=== PATIENT | male | born 1985 | race Caucasian/White ===

== ENCOUNTER 2022-03-17 18:50 | Emergency (ER) | payer OTHER, BC, SELFPAY ==
[2022-03-17] VITALS (10 sets, daily range): BP systolic 130–131; BP diastolic 77–85; PULSE 60–86; RESP 11–17; TEMP 36.3; O2SAT 95–99
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
[2022-03-17 19:49] LABS: Basophils Percent Auto 0.3 % (0.2-1.2); Eosinophils Percent Auto 0.2 % (0-4.4); Hematocrit 42.9 % (42.0-52.0); Hemoglobin 14.9 g/dL (14.0-18.0); Immature Granulocyte Absolute 0.11 K/mm3 (0.00-0.031); Immature Granulocyte Percent A 0.8 % (0-0.5); Lymphocytes Absolute Auto 1.35 K/mm3 (0.9-3.2); Lymphocytes Percent Auto 9.5 % (18.3-44.2); Mean Corpuscular HGB Conc 34.7 g/dl (32-36); Mean Corpuscular Hemoglobin 30.3 pg (26-34); Mean Corpuscular Volume 87.4 fl (80-100); Mean Platelet Volume 9.9 fl (7.4-10.4); Monocytes Absolute Auto 0.5 K/mm3 (0.1-0.6); Monocytes Percent Auto 3.6 % (2.6-8.5); Neutrophils Absolute Auto 12.2 K/mm3 (1.3-6.7); Neutrophils Percent Auto 85.6 % (45.5-73.1); Platelet Count Result 257 k/mm3 (150-375); Red Blood Count 4.91 M/mm3 (4.6-6.20); Red Cell Distribution Width 11.9 % (11.5-14.5); White Blood Count 14.2 K/mm3 (4.5-10.0)
[2022-03-17 20:02] LABS: Alanine Aminotransferase 30 U/L (6-50); Albumin Level 4.8 g/dL (3.5-5.1); Alkaline Phosphatase 57 U/L (38-126); Anion Gap 14 mmol/L (8-16); Aspartate Amino Transferase 38 U/L (17-59); Bilirubin,Total 0.5 mg/dL (0.2-1.3); Blood Urea Nitrogen 10 mg/dL (9-20); Calcium 8.3 mg/dL (8.4-10.2); Carbon Dioxide 19 mmol/L (22-30); Chloride 101 mmol/L (98-107); Estimated CRCL calculation 115 ml/min; Estimated Glomerular Filt Rate > 60; Glucose 104 mg/dL (65-110); Potassium 3.6 mmol/L (3.4-5.0); Sodium 134 mmol/L (137-145)
[2022-03-17 20:14] LABS: Ethanol 272 mg/dL (<10)
== END 2022-03-17 22:39 | disposition home or self-care (01) ==
PROVIDERS: Emergency Provider Emergency Medicine
DX: Z04.1 Encounter for examination and observation following transport accident (principal); F10.129 Alcohol abuse with intoxication, unspecified; Y90.7 Blood alcohol level of 200-239 mg/100 ml; V47.5XXA Car driver injured in collision with fixed or stationary object in traffic accident, initial encounter; N20.0 Calculus of kidney
CPT/HCPCS: 36415; 70450; 71260; 72125; 74177; 80053; 80307; 85025; 99284; Q9967

== ENCOUNTER 2025-02-06 00:11 | Emergency (ER) | payer OTHER, SELFPAY ==
--- NOTE | ~2025-02-06 | CT_ITS ---
EXAM/PROCEDURE: CT abdomen pelvis wo con HISTORY: flank pain COMPARISON: March 17, 2022 TECHNIQUE: Noncontrast enhanced CT of the abdomen and pelvis FINDINGS: 4 mm partially distal left ureteral stone present approximately 4 to 6 cm above the left UVJ. Mild left-sided hydroureteronephrosis present, image 81 of the coronal series, and image 145 series 3 the axial images. Additionally, there are 3 other punctate upper and lower pole left kidney stones present. At least 3 punctate nonobstructing right kidney stones are present. No hydroureteronephrosis on the right side. No urinary bladder stones. Urinary bladder appears borderline distended but otherwise normal for technique. Mildly enlarged prostate gland. The bowel gas pattern is nonobstructive with no free air or free fluid or pneumatosis seen. Aorta normal in size. No grossly thickened appendix. Moderate amount of stool extends of the cecum. Solid organs appear intact. Stomach unremarkable. Lung bases clear. Bones appear intact. IMPRESSION: Directly noncontrast exam demonstrating a 4 mm distal left ureteral stone with mild left-sided hydroureteronephrosis. Other findings as above. NOTE: Preliminary radiology report provided by [facility] physician/radiologist. Reviewed, dictated and finalized at location A. INITIO ETL DEVELOPER
[2025-02-06 00:14] VITALS: BP 143/94; PULSE 53; RESP 20; TEMP 37.1; O2SAT 100
[2025-02-06 01:20] VITALS: BP 127/77; PULSE 63; RESP 17; O2SAT 97
[2025-02-06 01:23] LABS: Hematocrit 41.0 % (42.0-52.0); Hemoglobin 14.3 g/dL (14.0-18.0); Immature Granulocyte Percent A 0.3 % (0-0.5); Lymphocytes Absolute Auto 1.22 K/mm3 (0.9-3.2); Mean Corpuscular HGB Conc 34.9 g/dl (32-36); Mean Corpuscular Hemoglobin 29.9 pg (26-34); Mean Corpuscular Volume 85.6 fl (80-100); Nucleated Red Blood Cells Absolute Auto 0.000 K/mm3 (0.0-0.012); Nucleated Red Blood Cells Perc 0.0 % (0.0-0.2); Platelet Count Result 280 k/mm3 (150-375); Red Blood Count 4.79 M/mm3 (4.6-6.20); White Blood Count 12.7 K/mm3 (4.5-10.0)
[2025-02-06 01:37] LABS: Alanine Aminotransferase 19 U/L (6-50); Albumin Level 4.4 g/dL (3.5-5.1); Alkaline Phosphatase 58 U/L (38-126); Anion Gap 9 mmol/L (4-12); Aspartate Amino Transferase 24 U/L (17-59); Bilirubin,Total 0.7 mg/dL (0.2-1.3); Blood Urea Nitrogen 16 mg/dL (9-20); Calcium 8.7 mg/dL (8.4-10.2); Carbon Dioxide 21 mmol/L (22-30); Chloride 101 mmol/L (98-107); Estimated CRCL calculation 114 ml/min; Estimated Glomerular Filt Rate > 60; Glucose 110 mg/dL (65-110); Potassium 3.4 mmol/L (3.4-5.0); Sodium 131 mmol/L (137-145); Total Protein 6.8 g/dL (6.3-8.2)
--- NOTE | 2025-02-06 02:05 | PC.NURSE ---
notified of bladder scan measure.
[2025-02-06 02:59] LABS: Add Urine Microscopic? YES; Appearance Urine Clear (Clear); Glucose Urine UA Negative (Negative); Leukocyte Esterase Ur Trace LEU/UL (Negative); Nitrate Urine Negative (Negative); Non Pathogenic Casts 0-2; Specific Grav Ur 1.006 (1.001-1.035)
--- NOTE | 2025-02-06 03:29 | ED.GENADULT ---
HPI - General Adult General Chief complaint: Urogenital-Male Stated complaint: flank pain Time Seen by Provider: 02/06/25 02:51 History of Present Illness HPI narrative: This is a 39-year-old male with history of kidney stones presenting left-sided flank pain. Pain started around 5:00 p.m. then became acutely worse at 10:30 a.m.. His sharp pain in his left flank radiating to his abdomen. He is having difficulty urinating. No fevers or pain on urination. No urgency or frequency. Related Data Allergies Allergy/AdvReac Type Severity Reaction Status Date / Time No Known Allergies Allergy Verified 02/06/25 00:16 Exam Narrative: APPEARANCE: No apparent distress. Head: atraumatic. EYES: EOMI, NOSE: Atraumatic NECK: Trachea midline RESPIRATORY: No increased rate of breathing clear to auscultation CARDIOVASCULAR: RRR, ABDOMINAL: Non-distended soft nontender no CVA tenderness MUSCULOSKELETAl: No obvious deformities NEURO: Alert. Moving 4/4 extremities SKIN:: Warm, dry. Normal color PSYCHIATRIC: Normal affect Course Vital Signs Vital signs: Vital Signs Temperature 98.8 F 02/06/25 00:14 Pulse Rate 53 L 02/06/25 00:14 Respiratory Rate 20 02/06/25 00:14 Blood Pressure 143/94 H 02/06/25 00:14 Pulse Oximetry 100 02/06/25 00:14 Oxygen Delivery Room Air 02/06/25 00:14 Temperature 98.8 F 02/06/25 00:14 Pulse Rate 63 02/06/25 01:20 Respiratory Rate 17 02/06/25 01:20 Blood Pressure 127/77 02/06/25 01:20 Pulse Oximetry 97 02/06/25 01:20 Oxygen Delivery Room Air 02/06/25 00:14 Medical Decision Making [facility] Narrative Medical decision making narrative: -Course: 39-year-old male presenting left-sided flank pain. CT showed a point stone left distal ureter. When I evaluated the patient he said that he had felt that he had passed the stone during his stay in the ED. He is no longer having any symptoms. Urine is not indicative infection. Laboratory studies within normal limits. He will be discharged with appropriate medications regardless. Patient given Urology follow-up. Given return precautions. -DDX includes but is not limited to: Kidney stone, infected stone, muscle strain Vital Signs Vital Signs: Vital Signs Temperature 98.8 F 02/06/25 00:14 Pulse Rate 53 L 02/06/25 00:14 Respiratory Rate 20 02/06/25 00:14 Blood Pressure 143/94 H 02/06/25 00:14 Pulse Oximetry 100 02/06/25 00:14 Oxygen Delivery Room Air 02/06/25 00:14 Temperature 98.8 F 02/06/25 00:14 Pulse Rate 63 02/06/25 01:20 Respiratory Rate 17 02/06/25 01:20 Blood Pressure 127/77 02/06/25 01:20 Pulse Oximetry 97 02/06/25 01:20 Oxygen Delivery Room Air 02/06/25 00:14 Lab Data 02/06/25 01:17 02/06/25 01:17 Labs: Lab Results 02/06/25 02/06/25 Range/Units 01:17 02:49 WBC 12.7 H (4.5-10.0) K/mm3 RBC 4.79 (4.6-6.20) M/mm3 Hgb 14.3 (14.0-18.0) g/dL Hct 41.0 L (42.0-52.0) % MCV 85.6 (80-100) fl MCH 29.9 (26-34) pg MCHC 34.9 (32-36) g/dl RDW 11.5 (11.5-14.5) % Plt Count 280 (150-375) k/mm3 MPV 10.0 (7.4-10.4) fl Immature Gran % (Auto) 0.3 (0-0.5) % Neut % (Auto) 85.3 H (45.5-73.1) % Lymph % (Auto) 9.6 L (18.3-44.2) % [place] % (Auto) 4.4 (2.6-8.5) % Eos % (Auto) 0.2 (0-4.4) % Baso % (Auto) 0.2 (0.2-1.2) % Lymph # (Auto) 1.22 (0.9-3.2) K/mm3 [place] # (Auto) 0.6 (0.1-0.6) K/mm3 Eos # (Auto) 0.0 (0-0.3) K/mm3 Baso # (Auto) 0.0 (0.0-0.1) K/mm3 Abs Immat Gran (auto) 0.04 H (0.00-0.031) K/mm3 Absolute Neuts (auto) 10.9 H (1.3-6.7) K/mm3 Absolute Nucleated RBC 0.000 (0.0-0.012) K/mm3 Nucleated RBC % 0.0 (0.0-0.2) % Sodium 131 L (137-145) mmol/L Potassium 3.4 (3.4-5.0) mmol/L Chloride 101 (98-107) mmol/L Carbon Dioxide 21 L (22-30) mmol/L Anion Gap 9 (4-12) mmol/L BUN 16 (9-20) mg/dL Creatinine 0.80 (0.7-1.3) mg/dL Estim Creat Clear Calc 114 ml/min Estimated GFR > 60 (59 - ) Glucose 110 (65-110) mg/dL Calcium 8.7 (8.4-10.2) mg/dL Total Bilirubin 0.7 (0.2-1.3) mg/dL AST 24 (17-59) U/L ALT 19 (6-50) U/L Alkaline Phosphatase 58 (38-126) U/L Total Protein 6.8 (6.3-8.2) g/dL Albumin 4.4 (3.5-5.1) g/dL Urine Color Yellow (Yellow) Urine Appearance Clear (Clear) Urine pH 5.5 (5.0-9.0) Ur Specific [place] 1.006 (1.001-1.035) Urine Protein Negative (Negative) mg/dL Urine Glucose (UA) Negative (Negative) mg/dL Urine Ketones 1+ H (Negative) mg/dL Ur Blood (Man) 3+ H (Negative) Urine Nitrate Negative (Negative) Urine Bilirubin Negative (Negative) Urine Urobilinogen 0.2 (<2.0) mg/dL Leukocyte Esterase Rfl Trace H (Negative) SHAUN/UL Urine RBC 6-10 H (0-2) /hpf Urine WBC 0-5 (0-3) /hpf Ur Squamous Epith Cells None seen (Few) /hpf Urine Bacteria None seen /hpf Urine Casts 0-2 Discharge Plan Discharge Clinical Impression: Kidney stone Patient Disposition: Home Condition: Stable Instructions: Antibiotic Form, Kidney Stones (ED) Additional Instructions: You were seen in the emergency department for a kidney stone. Please use Motrin/Tylenol for pain. Use oxycodone for breakthrough pain. Use Zofran for nausea. Please follow-up with your Urologist for further management. Please return if you develop severe pain, fevers or intractable nausea and vomiting. Patient Language: Gibralt[place] Prescriptions: New acetaminophen 500 mg tablet 1,000 mg PO TID PRN (Reason: swapnil) 7 Days Qty: 42 0RF ibuprofen 800 mg tablet 800 mg PO TID PRN (Reason: pain) 7 Days Qty: 21 0RF tamsulosin [Flomax] 0.4 mg capsule 0.4 mg PO DAILY Qty: 30 0RF ondansetron 4 mg tablet,disintegrating 4 mg PO Q8H PRN (Reason: nausea and vomiting) Qty: 30 0RF oxycodone 5 mg tablet 5 mg PO Q4H PRN (Reason: pain) Qty: 6 0RF Follow-up/Referrals: PHYSICIAN,PURCHASING ASSOCIATE [Primary Care Provider, Internal Medicine] Ubaldo Black MD [Physician, Urology] - 1 Week Referral Note: kidney stone
[2025-02-06 03:43] VITALS: BP 138/69; PULSE 73; RESP 18; O2SAT 96
== END 2025-02-06 03:43 | disposition home or self-care (01) ==
LOC: ANHED 03:33
PROVIDERS: Emergency Provider Emergency Medicine
DX: N13.2 Hydronephrosis with renal and ureteral calculous obstruction (principal)
CPT/HCPCS: 36415; 74176; 80053; 81001; 85025; 99284